=== PATIENT | female | born 1990 | race Asian ===

== ENCOUNTER 2021-01-06 12:48 | Emergency (ER) | payer SELFPAY ==
[~2021-01-06] VITALS: Ht 167.6 cm; Wt 58.0 kg
[2021-01-06] MEDS ORDERED: ACETAMINOPHEN WITH CODEINE 300/30MG TABLET PO ONE (13:30)
[2021-01-06] MEDS ORDERED: IBUP-2029 MT (14:27)
[2021-01-06 15:03] VITALS: BP 113/80
== END 2021-01-06 15:04 | disposition home or self-care (01) ==
LOC: ER 13:05
DX: S00.83XA Contusion of other part of head, initial encounter (principal); Y08.89XA Assault by other specified means, initial encounter; Y93.89 Activity, other specified; Y92.89 Other specified places as the place of occurrence of the external cause; Y99.8 Other external cause status
CPT/HCPCS: 70486; 81025; 99285